=== PATIENT | female | born 1995 | race African-American/Black ===

== ENCOUNTER 2023-10-28 13:55 | Emergency (ER) | payer MEDICARE, MEDICAID ==
[~2023-10-28] VITALS: Ht 162.6 cm; Wt 59.2 kg
[2023-10-28 14:35] LABS: BILIRUBIN, URINE POSITIVE (negative); BLOOD/HGB, URINE NEGATIVE (Negative); KETONE, URINE >=80 (Negative); LEUK ESTERASE, URINE NEGATIVE (negative); NITRITE, URINE NEGATIVE (negative); PH, URINE 5.5 (5-7)
[2023-10-28 14:40] LABS: PREGNANCY TEST, URINE NEGATIVE (NEG)
[2023-10-28 14:56] LABS: AMPHETAMINES, URINE NEGATIVE (NEGATIVE); BARBITURATES, URINE NEGATIVE (NEGATIVE); BENZODIAZEPINE, URINE NEGATIVE (NEGATIVE); BUPRENORPHINE, URINE NEGATIVE (NEGATIVE); CANNABINOID, URINE NEGATIVE (NEGATIVE); COCAINE, URINE NEGATIVE (NEGATIVE); ECSTASY, URINE NEGATIVE (NEGATIVE); FENTANYL, URINE NEGATIVE (NEGATIVE); METHADONE, URINE NEGATIVE (NEGATIVE); OPIATES, URINE NEGATIVE (NEGATIVE); OXYCODONE, URINE NEGATIVE (NEGATIVE); PHENCYCLIDINE, URINE NEGATIVE (NEGATIVE)
[2023-10-28] MEDS ORDERED: TRAMADOL HCL 50 MG HOME.PACK PO ONE (20:00)
--- NOTE | 2023-10-29 13:54 | EKG ---
[facility] [address] [facility] [place], [place] [address] Signed Normal sinus rhythm Normal ECG No previous ECGs available Confirmed by Martha Colmenares MD ([id number]) on 10/29/2023 1:53:45 PM Electronically Signed By: MARTHA COLMENARES 10/29/23 1354 PATIENT NAME: ODILON DE LA CRUZ Electrocardiogram DATE OF : [birth year] PHYSICIAN: MARTHA COLMENARES REPORT #: [id number] REPORT IS CONFIDENTIAL AND NOT TO BE RELEASED WITHOUT AUTHORIZATION
[2023-10-29 16:46] VITALS: BP 109/79
== END 2023-10-29 16:46 ==
LOC: ED 13:55
PROVIDERS: Emergency Medicine
DX: F20.2 Catatonic schizophrenia (principal)
CPT/HCPCS: 80307; 81003; 84703; 93005; 93010; 99283

== ENCOUNTER 2023-11-17 10:57 | Emergency (ER) | payer MEDICARE, MEDICAID ==
[~2023-11-17] VITALS: Ht 162.6 cm; Wt 61.0 kg
--- OUTSIDE RECORDS SUMMARY | 2023-11-17 10:59 | XMS ---
PreManage Notification: JD GOODMAN Security Manager Strategy Events No recent Security Events currently on file CRITERIA MET - [facility] - 2 Visits in 30 Days CARE PROVIDERS There are no care providers on record at this time. Cristobal has no Care Guidelines for this patient. [facility]12 MO.) [facility] NOTE: Visits indicate total known visits. ED/C VISIT TRACKING (12 MO.) [facility] COMPLAINT: - MEDICAL CLEARANCE 10/28/2023 13:56 [facility] OR TYPE: Emergency COMPLAINT: - MEDICAL CLEARANCE DIAGNOSES: - Catatonic schizophrenia INPATIENT VISIT TRACKING (12 MO.) No inpatient visits to display in this time frame [email or web address]
[2023-11-17 12:07] LABS: BILIRUBIN, URINE NEGATIVE (negative); BLOOD/HGB, URINE NEGATIVE (Negative); KETONE, URINE TRACE (Negative); LEUK ESTERASE, URINE TRACE (negative); NITRITE, URINE NEGATIVE (negative)
[2023-11-17 12:19] LABS: BACTERIA, URINE RARE /hpf (negative); CASTS, URINE NONE SEEN \\lpf; COLLECTION TYPE, URINE CLEAN CATCH; CRYSTALS, URINE NONE SEEN (0-1+); EPITHELIAL CELLS, URINE SQUAMOUS 3+ /lpf (0-1+); RED BLOOD CELLS, URINE 0-1 /hpf (0-5); REFLEX CULTURE, URINE No (No)
[2023-11-17 12:27] LABS: BASOPHILS 0.4 % (0-2); HEMOGLOBIN 12.9 g/dL (12.0-18.0); LYMPHOCYTES 26.3 % (24-44); MCH 30.2 (27-36); MCHC 32.2 g/dl (30-36); MCV 93.7 fl (81-99); MONOCYTES 6.4 % (0-12); NEUTROPHILS 64.9 % (39-80); PLATELET COUNT 247 K/uL (140-440); RBC 4.27 M/ul (4.3-5.7); RDW 14.6 (10.5-15.0)
[2023-11-17 12:28] LABS: AMPHETAMINES, URINE NEGATIVE (NEGATIVE); BARBITURATES, URINE NEGATIVE (NEGATIVE); BENZODIAZEPINE, URINE NEGATIVE (NEGATIVE); BUPRENORPHINE, URINE NEGATIVE (NEGATIVE); CANNABINOID, URINE NEGATIVE (NEGATIVE); COCAINE, URINE NEGATIVE (NEGATIVE); ECSTASY, URINE NEGATIVE (NEGATIVE); FENTANYL, URINE NEGATIVE (NEGATIVE); METHADONE, URINE NEGATIVE (NEGATIVE); OPIATES, URINE NEGATIVE (NEGATIVE); OXYCODONE, URINE NEGATIVE (NEGATIVE); PHENCYCLIDINE, URINE NEGATIVE (NEGATIVE)
[2023-11-17 12:54] LABS: ACETAMINOPHEN 0 ug/mL (10-30); ALBUMIN 3.9 g/dL (3.4-5.0); ALBUMIN/GLOBULIN RATIO 0.98 (1.1-2.4); ALCOHOL, MEDICAL <3 ng/dL (<3); ALKALINE PHOSPHATASE 87 U/L (46-116); ALT (SGPT) 12 U/L (14-59); ANION GAP 12.8 (7-21); AST (SGOT) 11 U/L (15-37); BILIRUBIN, TOTAL 0.2 ng/dL (0.2-1.0); BUN/CREATININE RATIO 13.09 (6.0-28.6); CALCIUM 9.4 mg/dL (8.5-10.1); CARBON DIOXIDE 29 mmol/L (21-32); CHLORIDE 109 mmol/L (98-107); CREATININE, SERUM 0.84 mg/dL (0.55-1.02); GLOMERULAR FILTRATION RATE,EST 98 mL/min (>60); POTASSIUM 3.8 mmol/L (3.5-5.1); PROTEIN, TOTAL 7.9 g/dL (6.4-8.2); SALICYLATE 1.7 mg/dL (2.8-20.0); TSH, 3RD GENERATION 0.688 uIU/mL (0.358-3.740); UREA NITROGEN 11 mg/dL (7-18)
[2023-11-17 15:58] VITALS: BP 108/68
--- NOTE | 2023-11-18 13:49 | EKG ---
[facility] [address] [facility] [place], [place] [address] Signed Normal sinus rhythm Normal ECG Confirmed by Celina Smiley MD ([id number]) on 11/18/2023 1:48:53 PM Electronically Signed By: CELINA SMILEY MD 11/18/23 1349 PATIENT NAME: JD GOODMAN Electrocardiogram DATE OF : [birth year] PHYSICIAN: CELINA SMILEY MD REPORT #: [id number] REPORT IS CONFIDENTIAL AND NOT TO BE RELEASED WITHOUT AUTHORIZATION
== END 2023-11-17 15:58 | disposition home or self-care (01) ==
LOC: ED 10:57
PROVIDERS: Emergency Medicine
DX: Z00.8 Encounter for other general examination (principal); U07.1 COVID-19; F32.A Depression, unspecified
CPT/HCPCS: 36415; 80053; 80307; 81001; 84443; 84703; 85025; 93005; 93010; 99284; G0480; U0002

== ENCOUNTER 2024-02-15 11:15 | Emergency (ER) | payer MEDICARE, MEDICAID, OTHER ==
[~2024-02-15] VITALS: Ht 162.6 cm; Wt 68.0 kg
[2024-02-15 11:54] VITALS: BP 112/73
== END 2024-02-15 11:54 | disposition other institution, planned readmission (95) ==
LOC: ED 11:15
DX: S61.213A Laceration without foreign body of left middle finger without damage to nail, initial encounter (principal); Z02.89 Encounter for other administrative examinations; W20.8XXA Other cause of strike by thrown, projected or falling object, initial encounter
CPT/HCPCS: 99283